=== PATIENT | male | born 1940 | race Caucasian/White ===

== ENCOUNTER 2016-07-17 12:51 | Day surgery (SDC) | payer OTHER ==
[2016-07-17] MEDS ORDERED: PROPOFOL 200 MG/20 ML VIAL IVP ONE (13:05)
[2016-07-17] MEDS ORDERED: NS 500 ML IV ONE (13:05)
[2016-07-17] MEDS ORDERED: MIDAZOLAM 2 MG/2 ML VIAL IVP ONE (13:05)
[2016-07-17] MEDS ORDERED: fentaNYL 100 MCG/2 ML INJ IVP ONE (13:05)
--- NOTE | 2016-07-17 13:25 | CPEKG ---
Heart Rate: 61 RR Interval: 984 P-R Interval: 188 QRSD Interval: 128 QT Interval: 464 QTC Interval: 468 P Reno: 53 QRS Reno: -62 T Wave Reno: 91 EKG Severity - ABNORMAL ECG - EKG Impression: SINUS RHYTHM EKG Impression: LEFT BUNDLE BRANCH BLOCK EKG Impression: IN COMPARISON TO PRIOR, NO CHANGES NOTED Electronically Signed By: Juice Wilson 19-Jul-2016 08:42:15
== END 2016-07-17 14:00 | disposition home or self-care (01) ==
LOC: FCATH 12:51
PROVIDERS: ATTEND Internal Medicine Cardiovascular Disease
DX: I48.0 Paroxysmal atrial fibrillation (principal); Z53.09 Procedure and treatment not carried out because of other contraindication; I48.92 Unspecified atrial flutter; I44.7 Left bundle-branch block, unspecified; I25.10 Atherosclerotic heart disease of native coronary artery without angina pectoris; I10 Essential (primary) hypertension; K21.9 Gastro-esophageal reflux disease without esophagitis; G20 Parkinson's disease; Z79.82 Long term (current) use of aspirin; Z79.01 Long term (current) use of anticoagulants

== ENCOUNTER → 2016-07-19 | Outpatient (CLI) | payer OTHER | LOC: FIMAGING 10:46 | PROVIDERS: ATTEND Internal Medicine | DX: R05 Cough (principal) ==

== ENCOUNTER 2016-07-26 08:17 | Outpatient (CLI) | payer OTHER ==
[2016-07-26] MEDS ORDERED: NALOXONE HCL 0.4 MG/ML INJ ONE (09:23)
[2016-07-26] MEDS ORDERED: FLUMAZENIL 0.5 MG/5 ML MDV IVP ONE (09:23)
[2016-07-26] MEDS ORDERED: fentaNYL 100 MCG/2 ML INJ ONE (09:24)
[2016-07-26] MEDS ORDERED: MIDAZOLAM 2 MG/2 ML VIAL ONE (09:24)
[2016-07-26] MEDS ORDERED: ONDANSETRON 4 MG/2 ML VIAL IVP PRN (10:50)
== END 2016-07-26 11:10 | disposition home or self-care (01) ==
LOC: FIMAGING 08:17
PROVIDERS: ATTEND Physician Assistant
DX: M51.36 Other intervertebral disc degeneration, lumbar region (principal); M47.896 Other spondylosis, lumbar region; Z98.1 Arthrodesis status
CPT/HCPCS: 72148; 99152; 99153; J2250; J3010; J2310

== ENCOUNTER → 2016-07-30 | Outpatient (CLI) | payer OTHER | LOC: BHFA 11:30 | PROVIDERS: ATTEND Internal Medicine Cardiovascular Disease | DX: I25.10 Atherosclerotic heart disease of native coronary artery without angina pectoris (principal); R60.9 Edema, unspecified ==

== ENCOUNTER → 2016-08-29 | Outpatient (CLI) | payer OTHER | LOC: BHFA 13:45 | PROVIDERS: ATTEND Internal Medicine Cardiovascular Disease | DX: I48.92 Unspecified atrial flutter (principal) ==

== ENCOUNTER → 2017-02-08 | Outpatient (CLI) | payer OTHER | LOC: FIMAGING 15:19 | PROVIDERS: ATTEND Physician Assistant | DX: M54.5 Low back pain (principal); Z98.1 Arthrodesis status ==

== ENCOUNTER → 2017-04-02 | Outpatient (CLI) | payer OTHER | LOC: FIMAGING 12:11 | PROVIDERS: ATTEND Internal Medicine | DX: M25.551 Pain in right hip (principal); Z91.81 History of falling ==

== ENCOUNTER → 2017-10-22 | Outpatient (CLI) | payer OTHER | LOC: FIMAGING 10:32 | PROVIDERS: ATTEND Physical Medicine & Rehabilitation | DX: M51.36 Other intervertebral disc degeneration, lumbar region (principal); Z98.1 Arthrodesis status ==

== ENCOUNTER → 2017-11-19 | Outpatient (CLI) | payer OTHER | LOC: BHFA 13:00 | PROVIDERS: ATTEND Internal Medicine Cardiovascular Disease | DX: R06.02 Shortness of breath (principal); R42 Dizziness and giddiness; I95.9 Hypotension, unspecified ==

== ENCOUNTER → 2018-02-12 | Outpatient (CLI) | payer OTHER | LOC: BHFA 09:15 | PROVIDERS: ATTEND Internal Medicine Cardiovascular Disease | DX: R06.02 Shortness of breath (principal) ==

== ENCOUNTER → 2018-02-15 | Outpatient (CLI) | payer OTHER | LOC: FCPNEURO 20:00 | PROVIDERS: ATTEND Psychiatry & Neurology Sleep Medicine | DX: G47.33 Obstructive sleep apnea (adult) (pediatric) (principal) ==

== ENCOUNTER → 2018-03-12 | Outpatient (CLI) | payer OTHER | LOC: FIMAGING 14:06 | PROVIDERS: ATTEND Internal Medicine | DX: M54.5 Low back pain (principal); Z98.1 Arthrodesis status ==

== ENCOUNTER → 2018-05-21 | Outpatient (CLI) | payer OTHER | LOC: BHFA 11:30 | PROVIDERS: ATTEND Internal Medicine Interventional Cardiology | DX: R26.89 Other abnormalities of gait and mobility (principal); R41.3 Other amnesia ==

== ENCOUNTER → 2018-05-27 | Outpatient (CLI) | payer OTHER | LOC: FIMAGING 18:40 | PROVIDERS: ATTEND Internal Medicine | DX: M62.89 Other specified disorders of muscle (principal); M77.9 Enthesopathy, unspecified; M50.321 Other cervical disc degeneration at C4-C5 level ==

== ENCOUNTER → 2018-06-26 | Outpatient (CLI) | payer OTHER | LOC: FIMAGING 11:28 | PROVIDERS: ATTEND Physician Assistant | DX: M41.80 Other forms of scoliosis, site unspecified (principal); I25.10 Atherosclerotic heart disease of native coronary artery without angina pectoris ==

== ENCOUNTER 2018-07-27 13:42 | Emergency (ER) | payer OTHER ==
--- NOTE | 2018-07-27 14:56 | EDPHY ---
HPI/HX/ROS/PE/MDM Narrative: CHIEF COMPLAINT: Mechanical fall HISTORY OF PRESENT ILLNESS: This patient is an anticoagulated 77 year old male with past medical history including Parkinson's disease, CAD, hypertension, and atrial fibrillation. He presents following a mechanical fall earlier today when he tripped over the threshold of his front door. He fell forward, striking his face against the ground. He denies any loss of consciousness. No syncope, chest pain, shortness of breath, or other associated symptoms. No confusion or word-finding difficulty , no numbness or paresthesias in his extremities. He complains of facial and head pain as well as back pain. He has had a mild cold recently but otherwise has felt well recently. He has chronic imbalance secondary to his Parkinson's disease. No fever, chills, chest pain, shortness of breath, vomiting, diarrhea, urinary complaints, headache, lightheadedness. REVIEW OF SYSTEMS: A comprehensive 10 system review of systems is otherwise negative aside from elements mentioned in the history of present illness and medical decision making. PAST MEDICAL HISTORY: Parkinson's disease. CAD s/p stent placement. Scoliosis. Hypertension. Chronic low back pain. Hypothyroid Atrial fibrillation. Osteoporosis. BBB SOCIAL HISTORY: . Lives in [place]. Retired. at bedside. VITAL SIGNS: Reviewed by me GENERAL: Well-developed, well-nourished, resting comfortably in no respiratory distress. HEENT: Abrasions and mild swelling over forehead, nasal bridge, and upper lip.. Eyes: No icterus, no injection. EOMI. Mouth: moist mucous membranes. Abrasions over upper lip. Neck: Midline cervical spine tenderness, particularly over C3- C4. Supple with no adenopathy. LUNGS: Clear to auscultation bilaterally, no wheezes, rhonchi or rales. CARDIAC: Regular rate and rhythm, no rubs, murmurs or gallops. ABDOMEN: Soft, nontender, nondistended, bowel sounds normal. BACK: Upper lumbar spine tenderness. No CVA tenderness. EXTREMITIES: Abrasion over left knee. No edema. Range of motion is normal throughout. NEURO: Alert and oriented, grossly nonfocal. SKIN: Warm and dry, no rash. PSYCHIATRIC: Normal mentation, no agitation. Portions of this note were transcribed by a dental assistant medical assistant. I personally performed a history, physical exam, medical decision making, and confirmed accuracy of information the transcribed note. ED Course: This anticoagulated (Eliquis) 77 y/o male with history of Parkinson's, atrial fibrillation, CAD presents with facial, head, neck, and back pain following a mechanical fall earlier today. On exam, he has abrasions and mild swelling over his forehead, nasal bridge, and upper lip, as well as tenderness over his cervical and upper lumbar spine. Plan for CT head/neck without contrast and x- ray of l-spine. Plan to administer 1000mg PO Tylenol for pain relief. 15:05 CT head shows displaced nasal fracture. No evidence of acute intracranial processes. Further imaging studies are pending. X-ray of the lumbar spine is negative for acute traumatic processes. CT of the cervical spine shows chronic degenerative changes, nothing acute. Reassessed patient. Plan to discharge home in good condition. Follow up and strict return precautions discussed. The patient is comfortable with this plan. MDM: Differential diagnosis of this patient's fall was considered including but not limited to intracranial injury, long bone and pelvic bone fracture, spinal injury, intrathoracic injury, extremity injury, intra-abdominal injury, lacerations, abrasions, and contusions. - Data Points Imaging Results: Imaging Impressions Head CT 07/27/18 14:11 Impression: Bilateral nasal fractures, slightly displaced toward the left. No posttraumatic intracranial abnormality identified. Results discussed with Dr. Lnage at 3:02 PM.. Results called to Dr. Oscar. General information for patients regarding this examination can be found at [employer]. If you have questions or comments about this report, please contact me at (hospital) or [phone] (cell). Cervical Spine CT 07/27/18 15:06 Impression: Multilevel degenerative disease. Nothing acute identified. Results discussed with Dr. Fowler at 4:07 PM. If there is concern for instability, then consider lateral flexion-extension views, cervical fluoroscopy and/or cervical MRI. General information for patients regarding this examination can be found at [email or web address]. If you have questions or comments about this report, please contact me at [phone](hospital) or [phone] (cell). Lumbar Spine X-Ray 07/27/18 15:07 Impression: 1. No posttraumatic lumbar spine abnormality identified. 2. New 11 mm round density in the right upper quadrant. This could possibly represent a nodule at the right lung base, something on the patient's skin or possibly cholelithiasis. Imaging: Discussed imaging studies w/ cigar bander hand Radiologist, I viewed and interpreted images myself Medications Given: Discontinued Medications Acetaminophen (Tylenol) 1,000 mg PO EDNOW ONE Stop: 07/27/18 15:08 Last Admin: 07/27/18 15:09 Dose: 1,000 mg General Time Seen by Provider: 07/27/18 14:55 Initial Vital Signs: Initial Vital Signs Temperature (C) 36.4 C 07/27/18 14:11 Heart Rate 67 07/27/18 14:11 Respiratory Rate 19 07/27/18 14:11 Blood Pressure 129/59 H 07/27/18 14:11 O2 Sat (%) 94 07/27/18 14:11 O2 Delivery Mode Room Air Allergies/Adverse Reactions: doxycycline Allergy (Intermediate, Verified 07/27/18 14:10) Rash Penicillins Allergy (Intermediate, Verified 07/27/18 14:10) Rash niacin Allergy (Unknown, Verified 07/27/18 14:10) Rash NSAIDS (Non-Steroidal Anti-Inflamma [NSAIDS (Non-Steroidal Anti-Inflammatory Drug)] Allergy (Unknown, Verified 07/27/18 14:10) CAUSES KIDNEY PROBLEMS ENVIRONMENTAL Allergy (Intermediate, Uncoded 03/29/14 11:07) NASAL DRIP Home Medications: Medication Instructions Recorded Apixaban [Eliquis] 5 mg PO BID@,12/07/17 Aspirin [Aspirin 81mg (*)] 81 mg PO DAILY@12/07/17 Carbidopa/Levo Cr 25/100Mg 0.5 tab PO QID@,1130,1530,12/07/17 [Sinemet CR 25/100 MG (*)] Carbidopa/Levo Cr 25/100Mg 1 tab PO DAILY@12/07/17 [Sinemet CR 25/100 MG (*)] Carbidopa/Levodopa 25/100Mg 2 tab PO QID@07,1130,1530,12/07/17 [Sinemet 25/100 MG (*)] Cholecalciferol Vit D3 [Vitamin D3 5,000 units PO BID@,12/07/17 (*)] Docusate Sodium [Colace 100 MG (*)] 100 mg PO BID@,12/07/17 Ezetimibe [Zetia 10 MG (*)] 10 mg PO DAILY@12/07/17 L-Methylfolate 800mcg Tab 800 mcg PO DAILY@112912/07/17 LORazepam [Ativan (*)] 0.5 mg PO BID@,12/07/17 Melatonin/Pyridoxine HCl (B6) 1 each PO DAILY@12/07/17 [Melatonin Tr 5 mg Tablet] Savage-3 Ethyl Est-Lovaza [Lovaza 1 2 gm PO BID@,12/07/17 gm (*)] PARoxetine HCL [Paxil 20mg (*)] 20 mg PO DAILY@12/07/17 Pantoprazole Sodium [Protonix 40mg 40 mg PO BID@,12/07/17 (*)] Pramipexole Di-HCl [Mirapex 0.25 0.25 mg PO DAILY@0712/07/17 mg (*)] Pramipexole Di-HCl [Mirapex 0.25 0.5 mg PO BID@1529,219912/07/17 mg (*)] Propafenone HCl [Rythmol 150mg (*)] 150 mg PO TID@,1529,12/07/17 Propylthiouracil [Propylthiouracil 50 mg PO BID@,12/07/17 50mg (*)] Rosuvastatin Calcium [Crestor] 5 mg PO DAILY@112912/07/17 Sucralfate [Carafate 1gm/10ml Oral 15 ml PO QID 12/07/17 Liquid (*)] Telmisartan [Micardis] 20 mg PO HS 12/07/17 Tretinoin/Emollient Base 1 malika TUBE DAILY@12/07/17 [Tretinoin 0.05% Emollient Crm] Ubiquinol 100 mg PO BID@1129,12/07/17 Vitamin K2 100 - 120 mcg PO DAILY@112912/07/17 amLODIPine BESYLATE [Norvasc 10 mg 5 mg PO BID@07,0 12/07/17 (*)] Aspirin [Aspirin 81mg (*)] 81 mg PO DAILY@07 tab.chew 12/10/17 Imipramine HCl [Imipramine HCl 25 10 mg PO HS #30 tab 12/10/17 mg (*)] Rosuvastatin Calcium [Crestor] 5 mg PO DAILY@1130 tab 12/10/17 Sennosides/Docusate Sodium 1 - 2 tab PO BID tab 12/10/17 [Senokot-S] amLODIPine BESYLATE [Norvasc 5 mg 5 mg PO BID@0700,1530 tab 12/10/17 (*)] Departure - Departure Disposition: Home, Routine, Self-Care Clinical Impression: Nasal bone fracture, Facial contusion Condition: Good Instructions: Nasal Fracture (ED), Facial Contusion (ED) Additional Instructions: I recommend ice and Tylenol for pain and to decrease the swelling. Apply ice for 20-30 minutes every 2-3 hours for the next 48 hours. Followup with your primary care physician as directed. Referrals: Jarred Ayala MD [Primary Care Provider] - As per Instructions Report Scribed for: Génesis Fowler Report Scribed by: Lorrie Smith Date of Report: 07/27/18 Time of Report: 15:37
[2018-07-27] MEDS ORDERED: ACETAMINOPHEN 500 MG TAB PO ONE (15:07)
[2018-07-27 16:39] VITALS: BP 148/73
== END 2018-07-27 16:39 | disposition home or self-care (01) ==
DX: S02.2XXA Fracture of nasal bones, initial encounter for closed fracture (principal); S00.81XA Abrasion of other part of head, initial encounter; S00.31XA Abrasion of nose, initial encounter; S00.511A Abrasion of lip, initial encounter; S80.212A Abrasion, left knee, initial encounter; I10 Essential (primary) hypertension; I48.91 Unspecified atrial fibrillation; I25.10 Atherosclerotic heart disease of native coronary artery without angina pectoris; G20 Parkinson's disease; M47.812 Spondylosis without myelopathy or radiculopathy, cervical region; M81.0 Age-related osteoporosis without current pathological fracture; W01.198A Fall on same level from slipping, tripping and stumbling with subsequent striking against other object, initial encounter; Y92.9 Unspecified place or not applicable; Y99.9 Unspecified external cause status; Y93.9 Activity, unspecified; Z79.01 Long term (current) use of anticoagulants; Z95.5 Presence of coronary angioplasty implant and graft